=== PATIENT | male | born 1975 | race Hispanic/Latino ===

== ENCOUNTER 2024-11-05 19:54 | Emergency (ER) | payer OTHER, BC ==
[~2024-11-05] VITALS: Ht 167.6 cm; Wt 114.3 kg
--- NOTE | 2024-11-05 20:58 | NUR ---
CASE # [id number], OFFICER Martin CORONA.
--- NOTE | 2024-11-05 21:00 | NUR ---
C- COLLAR APPLIED IN TRIAGE.
[2024-11-05] MEDS: acetaMINOPHEN 500 MG TABLET PO ONE (21:26)
[2024-11-05] MEDS: CYCLOBENZAPRINE HCL 10 MG TABLET PO ONE (21:26)
--- NOTE | 2024-11-05 22:43 | NUR ---
PT REMOVED C-COLLAR ON HIS OWN.
[2024-11-05] MEDS ORDERED: CYCL10TA16 PO (23:23)
[2024-11-05] MEDS ORDERED: IBUP-2070 PO (23:23)
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
[2024-11-05 23:33] VITALS: BP 160/94; PULSE 84; RESP 18; TEMP 96.9; O2SAT 97
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
== END 2024-11-05 23:34 | disposition home or self-care (01) ==
LOC: EDH 19:54
DX: S29.012A Strain of muscle and tendon of back wall of thorax, initial encounter (principal); S39.012A Strain of muscle, fascia and tendon of lower back, initial encounter; E11.9 Type 2 diabetes mellitus without complications; E78.00 Pure hypercholesterolemia, unspecified; I10 Essential (primary) hypertension; V49.9XXA Car occupant (driver) (passenger) injured in unspecified traffic accident, initial encounter; Y93.89 Activity, other specified; Y92.89 Other specified places as the place of occurrence of the external cause; Y99.8 Other external cause status
CPT/HCPCS: 71045; 72040; 72100; 99284